=== PATIENT | female | born 1990 | race Caucasian/White ===

== ENCOUNTER 2018-12-14 18:34 | Emergency (ER) | payer MEDICAID, OTHER ==
[~2018-12-14] VITALS: Ht 170.2 cm; Wt 86.6 kg
[~2018-12-14 18:34] MED LIST: FERR325T23 PO; IBUP-1223 PO; OXYC-302 PO; SENN-25 PO
[2018-12-14] MEDS ORDERED: LIDOCAINE-MPF 1%, 5ML ONE (19:16)
[2018-12-14] MEDS ORDERED: LIDOCAINE 1%, 2ML INFIL ONE (19:30)
[2018-12-14 20:46] VITALS: BP 105/74
== END 2018-12-14 20:47 | disposition home or self-care (01) ==
LOC: ED 20:30
DX: S62.651A Nondisplaced fracture of middle phalanx of left index finger, initial encounter for closed fracture (principal); S61.201A Unspecified open wound of left index finger without damage to nail, initial encounter; X58.XXXA Exposure to other specified factors, initial encounter; Y93.89 Activity, other specified; Y92.009 Unspecified place in unspecified non-institutional (private) residence as the place of occurrence of the external cause; Y99.8 Other external cause status
CPT/HCPCS: 29130; 99283